=== PATIENT | female | born 1935 ===

== ENCOUNTER → 2017-11-12 | Outpatient (CLI) | payer MEDICARE, OTHER ==
[~2017-11-12] MED LIST: ASCO500; ATOR10 PO; Aspirin EC81 MG; B Complex1 EAC2; CALMAGZIN; CHOL10002; CO Q10200 MG PO; DIPH50 PO; LISI20 PO; MAGOXI400; ZYRTEC10 M1 PO
== END | disposition home or self-care (01) ==
LOC: PLD 08:07 → LAB SHORT 08:07
DX: D48.5 Neoplasm of uncertain behavior of skin (principal)
CPT/HCPCS: 88305

== ENCOUNTER → 2019-12-16 | Outpatient (CLI) | payer MEDICARE, OTHER | END | disposition home or self-care (01) | LOC: PLD 08:44 → LAB SHORT 08:44 | DX: D48.5 Neoplasm of uncertain behavior of skin (principal) | CPT/HCPCS: 88305 ==

== ENCOUNTER → 2020-08-23 | Outpatient (CLI) | payer MEDICARE, OTHER | END | disposition home or self-care (01) | LOC: LAB SHORT 11:06 → PLD 11:06 | DX: D48.5 Neoplasm of uncertain behavior of skin (principal) | CPT/HCPCS: 88305 ==